=== PATIENT | female | born 1955 | race African-American/Black ===

== ENCOUNTER 2017-09-10 08:34 | Inpatient (IN) ==
[2017-09-10] MEDS ORDERED: ALBUTEROL/IPRATROPIUM 3 ML NEB RESP TX STA (09:04)
[2017-09-10 09:33] LABS: Basophils # 0.1 10*3/uL (0.0-0.2); Basophils % 0.6 % (0.0-0.8); Eosinophils # 0.2 10*3/uL (0.0-0.87); Eosinophils % 2.3 % (0.00-10.9); Hematocrit 40.8 VOL% (35.7-47.0); Hemoglobin 14.1 GM/DL (12.0-16.0); Immature Granulocytes % 0.2 %; Immature Granulocytes Absolute 0.02 #; Lymphocytes # 0.7 10*3/uL (1.4-4.0); Lymphocytes % 8.6 % (21.3-54.2); Mean Corpuscular HGB Conc 34.6 GM/DL (32-36); Mean Corpuscular Hemoglobin 31 PG (27-34); Mean Corpuscular Volume 90.9 FL (87-102); Mean Platelet Volume 8.5 FL (9.6-12.0); Monocytes # 0.6 10*3/uL (0.11-0.8); Monocytes % 7.2 % (1.7-12.7); Neutrophils # 6.9 10*3/uL (1.4-7.4); Neutrophils % 81.1 % (38.7-73.9); Platelet Count 272 T/CUMM (130-400); Red Blood Count 4.49 MC/CUMM (3.8-5.5); Red Cell Distribution Width 12.8 % (9.3-17.3); White Blood Count 8.6 T/CUMM (4-12)
[2017-09-10 10:18] LABS: Albumin 3.5 G/DL (3.4-5.0); Bilirubin,Total 0.5 MG/DL (0.2-1.0); Calcium 9.4 MG/DL (8.5-10.1); Osmolality,Calculated 271.8 MOS/KG (273-304); Potassium 3.8 MMOL/L (3.5-5.1); Total Protein 7.6 G/DL (6.4-8.3)
[2017-09-10] MEDS ORDERED: LEVOFLOXACIN INJ 500 MG in PREMIX 1 EACH IV STA (10:21)
[2017-09-10] MEDS ORDERED: DOCUSATE SODIUM 100 MG CAPSULE PO PRN (10:47)
[2017-09-10] MEDS ORDERED: ACETAMINOPHEN 325 MG TABLET PO PRN (10:47)
[2017-09-10] MEDS ORDERED: ONDANSETRON 4 MG/2 ML VIAL IV PRN (10:47)
[2017-09-10] MEDS ORDERED: PROMETHAZINE 25 MG/1 ML VIAL IM PRN (10:47)
[2017-09-10] MEDS ORDERED: guaiFENesin/DM ER 600-30 MG TABLET PO PRN (10:47)
[2017-09-10] MEDS ORDERED: diphenhydrAMINE CAP 25 MG CAPSULE PO PRN (10:47)
[2017-09-10] MEDS ORDERED: [UNRECOGNIZED DRUG - OTHER] PO PRN (10:52)
[2017-09-10] MEDS: ENOXAPARIN 40 MG/0.4 ML SYRINGE SUBCUT SCH (13:35)
[2017-09-10] MEDS: SODIUM CHLORIDE 0.9% 1,000 ML IV SCH (13:35)
[2017-09-10] MEDS: ALBUTEROL/IPRATROPIUM 3 ML NEB RESP TX SCH ×2 (13:38→19:11)
[2017-09-10] MEDS ORDERED: NICOTINE 21 MG/24 HR PATCH TRANSDERM PRN (13:43)
[2017-09-10] MEDS: methylPREDNISolone SOD SUC 125 MG/2 ML VIAL IV SCH (14:41)
[2017-09-10 16:53] LABS: PT Patient Result 10.7 SECS
[2017-09-11] MEDS: SODIUM CHLORIDE 0.9% 1,000 ML IV SCH ×3 (00:28→15:31)
[2017-09-11] MEDS: ALBUTEROL/IPRATROPIUM 3 ML NEB RESP TX SCH ×4 (00:56→20:41)
[2017-09-11] MEDS: methylPREDNISolone SOD SUC 125 MG/2 ML VIAL IV SCH ×2 (03:36→18:22)
[2017-09-11 05:17] LABS: Basophils % 0.1 % (0.0-0.8); Eosinophils % 0.1 % (0.00-10.9); Hematocrit 34.5 VOL% (35.7-47.0); Hemoglobin 12.3 GM/DL (12.0-16.0); Immature Granulocytes % 0.4 %; Immature Granulocytes Absolute 0.04 #; Lymphocytes # 0.8 10*3/uL (1.4-4.0); Lymphocytes % 8.2 % (21.3-54.2); Mean Corpuscular HGB Conc 35.7 GM/DL (32-36); Mean Corpuscular Hemoglobin 32 PG (27-34); Mean Corpuscular Volume 89.8 FL (87-102); Mean Platelet Volume 8.9 FL (9.6-12.0); Monocytes # 0.7 10*3/uL (0.11-0.8); Monocytes % 7.5 % (1.7-12.7); Neutrophils # 8.3 10*3/uL (1.4-7.4); Neutrophils % 83.7 % (38.7-73.9); Platelet Count 276 T/CUMM (130-400); Red Blood Count 3.84 MC/CUMM (3.8-5.5); Red Cell Distribution Width 12.8 % (9.3-17.3); White Blood Count 9.9 T/CUMM (4-12)
[2017-09-11 05:49] LABS: Albumin 2.7 G/DL (3.4-5.0); Bilirubin,Total 1.4 MG/DL (0.2-1.0); Calcium 8.3 MG/DL (8.5-10.1); Osmolality,Calculated 281.3 MOS/KG (273-304); Potassium 3.9 MMOL/L (3.5-5.1); Total Protein 6.2 G/DL (6.4-8.3)
[2017-09-11] MEDS: ASCORBIC ACID 500 MG TABLET PO SCH (10:09)
[2017-09-11] MEDS: TAMOXIFEN 10 MG TABLET PO SCH (10:09)
[2017-09-11] MEDS: CYANOCOBALAMIN 500 MCG TABLET PO SCH (10:09)
[2017-09-11] MEDS: PANTOPRAZOLE 40 MG TABLET PO SCH (10:09)
[2017-09-11] MEDS: CETIRIZINE 10 MG TABLET PO SCH (10:10)
[2017-09-11] MEDS: CHOLECALCIFEROL 400 UNIT TABLET PO SCH (10:10)
[2017-09-11] MEDS: amLODIPine 5 MG TABLET PO SCH (10:10)
[2017-09-11] MEDS: ENOXAPARIN 40 MG/0.4 ML SYRINGE SUBCUT SCH (10:15)
[2017-09-11] MEDS: LOSARTAN 50 MG TABLET PO SCH (10:15)
[2017-09-11] MEDS: LEVOFLOXACIN INJ 500 MG in PREMIX 1 EACH IV SCH (10:15)
[2017-09-11 14:32] LABS: Total Protein,Pleural Fluid 3.8 G/DL
[2017-09-11 19:54] LABS: Lymphocytes,Pleural Fluid 60 %; Monocytes,Pleural Fluid 19 %; Neutrophils,Pleural Fluid 21 %
[2017-09-11 19:56] LABS: RBC,Pleural Fluid 32212 T/CUMM
[2017-09-12] MEDS: ALBUTEROL/IPRATROPIUM 3 ML NEB RESP TX SCH ×4 (00:48→20:07)
[2017-09-12] MEDS: ENOXAPARIN 40 MG/0.4 ML SYRINGE SUBCUT SCH (09:51)
[2017-09-12] MEDS: ASCORBIC ACID 500 MG TABLET PO SCH (09:52)
[2017-09-12] MEDS: LOSARTAN 50 MG TABLET PO SCH (09:52)
[2017-09-12] MEDS: CETIRIZINE 10 MG TABLET PO SCH (09:52)
[2017-09-12] MEDS: TAMOXIFEN 10 MG TABLET PO SCH (09:52)
[2017-09-12] MEDS: LEVOFLOXACIN INJ 500 MG in PREMIX 1 EACH IV SCH (09:52)
[2017-09-12] MEDS: CYANOCOBALAMIN 500 MCG TABLET PO SCH (09:52)
[2017-09-12] MEDS: amLODIPine 5 MG TABLET PO SCH (09:52)
[2017-09-12] MEDS: PANTOPRAZOLE 40 MG TABLET PO SCH (09:52)
[2017-09-12] MEDS: CHOLECALCIFEROL 400 UNIT TABLET PO SCH (09:52)
[2017-09-12] MEDS: methylPREDNISolone SOD SUC 125 MG/2 ML VIAL IV SCH ×2 (09:53→20:37)
[2017-09-13] MEDS: ALBUTEROL/IPRATROPIUM 3 ML NEB RESP TX SCH ×4 (00:31→19:04)
[2017-09-13] MEDS: LOSARTAN 50 MG TABLET PO SCH (08:48)
[2017-09-13] MEDS: PANTOPRAZOLE 40 MG TABLET PO SCH (08:49)
[2017-09-13] MEDS: ASCORBIC ACID 500 MG TABLET PO SCH (08:49)
[2017-09-13] MEDS: CHOLECALCIFEROL 400 UNIT TABLET PO SCH (08:49)
[2017-09-13] MEDS: CETIRIZINE 10 MG TABLET PO SCH (08:49)
[2017-09-13] MEDS: CYANOCOBALAMIN 500 MCG TABLET PO SCH (08:49)
[2017-09-13] MEDS: TAMOXIFEN 10 MG TABLET PO SCH (08:49)
[2017-09-13] MEDS: ENOXAPARIN 40 MG/0.4 ML SYRINGE SUBCUT SCH (08:50)
[2017-09-13] MEDS: amLODIPine 5 MG TABLET PO SCH (08:50)
[2017-09-13] MEDS: methylPREDNISolone SOD SUC 125 MG/2 ML VIAL IV SCH ×2 (08:50→21:15)
[2017-09-13] MEDS: LEVOFLOXACIN INJ 500 MG in PREMIX 1 EACH IV SCH (08:52)
[2017-09-14] MEDS: ALBUTEROL/IPRATROPIUM 3 ML NEB RESP TX SCH ×4 (00:52→19:33)
[2017-09-14] MEDS: CYANOCOBALAMIN 500 MCG TABLET PO SCH (09:00)
[2017-09-14] MEDS: LOSARTAN 50 MG TABLET PO SCH (09:00)
[2017-09-14] MEDS: CHOLECALCIFEROL 400 UNIT TABLET PO SCH (09:01)
[2017-09-14] MEDS: CETIRIZINE 10 MG TABLET PO SCH (09:01)
[2017-09-14] MEDS: TAMOXIFEN 10 MG TABLET PO SCH (09:01)
[2017-09-14] MEDS: amLODIPine 5 MG TABLET PO SCH (09:01)
[2017-09-14] MEDS: PANTOPRAZOLE 40 MG TABLET PO SCH (09:01)
[2017-09-14] MEDS: methylPREDNISolone SOD SUC 125 MG/2 ML VIAL IV SCH ×2 (09:01→22:40)
[2017-09-14] MEDS: ASCORBIC ACID 500 MG TABLET PO SCH (09:01)
[2017-09-14] MEDS: ENOXAPARIN 40 MG/0.4 ML SYRINGE SUBCUT SCH (09:03)
[2017-09-14] MEDS: LEVOFLOXACIN INJ 500 MG in PREMIX 1 EACH IV SCH (09:06)
[2017-09-15] MEDS: ALBUTEROL/IPRATROPIUM 3 ML NEB RESP TX SCH ×2 (01:54→07:19)
[2017-09-15 08:26] VITALS: BP 131/72
[2017-09-15] MEDS: LOSARTAN 50 MG TABLET PO SCH (10:18)
[2017-09-15] MEDS: CYANOCOBALAMIN 500 MCG TABLET PO SCH (10:19)
[2017-09-15] MEDS: TAMOXIFEN 10 MG TABLET PO SCH (10:19)
[2017-09-15] MEDS: CETIRIZINE 10 MG TABLET PO SCH (10:19)
[2017-09-15] MEDS: CHOLECALCIFEROL 400 UNIT TABLET PO SCH (10:19)
[2017-09-15] MEDS: ASCORBIC ACID 500 MG TABLET PO SCH (10:19)
[2017-09-15] MEDS: amLODIPine 5 MG TABLET PO SCH (10:19)
[2017-09-15] MEDS: PANTOPRAZOLE 40 MG TABLET PO SCH (10:19)
[2017-09-15] MEDS: ENOXAPARIN 40 MG/0.4 ML SYRINGE SUBCUT SCH (10:20)
[2017-09-15] MEDS: methylPREDNISolone SOD SUC 125 MG/2 ML VIAL IV SCH (10:20)
[2017-09-15] MEDS: LEVOFLOXACIN INJ 500 MG in PREMIX 1 EACH IV SCH (10:20)
== END 2017-09-15 12:03 | disposition home or self-care (01) | DRG 188 ==
LOC: N.ED 08:34 → N.EDINP 10:47 → N.2E 14:44
PROVIDERS: ADMIT Internal Medicine Geriatric Medicine; ATTEND Internal Medicine Geriatric Medicine
PROC: IRTHORA (2017-09-11 10:40)

== ENCOUNTER 2018-05-19 11:18 | Inpatient (IN) ==
[2018-05-19] MEDS ORDERED: ALUM/MAG/SIMETH/LIDO VISC 1:1 30 ML BOTTLE PO STA (13:53)
[2018-05-19] MEDS ORDERED: ONDANSETRON 4 MG/2 ML VIAL IV STA (13:53)
[2018-05-19] MEDS ORDERED: SODIUM CHLORIDE 0.9% 500 ML IV STA (13:53)
[2018-05-19] MEDS ORDERED: PANTOPRAZOLE 40 MG VIAL IV STA (13:53)
[2018-05-19 15:34] LABS: Eosinophils % 0.2 % (0.00-10.9); Hematocrit 24.9 VOL% (35.7-47.0); Hemoglobin 8.8 GM/DL (12.0-16.0); Lymphocytes % 3.2 % (21.3-54.2); Mean Corpuscular HGB Conc 35.3 GM/DL (32-36); Mean Corpuscular Hemoglobin 32 PG (27-34); Mean Corpuscular Volume 91.5 FL (87-102); Mean Platelet Volume 9.5 FL (9.6-12.0); Monocytes % 6.3 % (1.7-12.7); Neutrophils % 87.5 % (38.7-73.9); Platelet Count 110 T/CUMM (130-400); Red Blood Count 2.72 MC/CUMM (3.8-5.5); Red Cell Distribution Width 13.1 % (9.3-17.3); White Blood Count 18.6 T/CUMM (4-12)
[2018-05-19 15:35] LABS: Basophils # 0.1 10*3/uL (0.0-0.2); Basophils % 0.4 % (0.0-0.8); Immature Granulocytes % 2.4 %; Immature Granulocytes Absolute 0.44 #; Lymphocytes # 0.6 10*3/uL (1.4-4.0); Monocytes # 1.2 10*3/uL (0.11-0.8); Neutrophils # 16.3 10*3/uL (1.4-7.4)
[2018-05-19 15:43] LABS: Apearance,Urine CLEAR (Clear); Bilirubin,Urine Negative (Negative); Blood, Urine Negative (Negative); Glucose,Urine (UA) Negative (Negative); Ketones,Urine 20 mg/dL (Negative); Nitrite,Urine Negative (Negative); Protein,Urine Negative; Urine Color Yellow (Yellow); Urine Specific Gravity 1.035 (1.001-1.035); Urine Urobilinogen < 2.0 EU/DL (0.2-1.0)
[2018-05-19 15:59] LABS: Alanine Aminotransferase 15 U/L (13-56); Albumin 3.1 G/DL (3.4-5.0); Alkaline Phosphatase 107 U/L (45-117); Amylase 45 U/L (25-115); Aspartate Amino Transferase 21 U/L (0-37); Bilirubin,Total < 0.39 MG/DL (0.2-1.0); Blood Urea Nitrogen 3 MG/DL (7-18); Calcium 8.2 MG/DL (8.5-10.1); Glucose 70 MG/DL (74-106); Osmolality,Calculated 236.2 MOS/KG (273-304); Potassium 3.6 MMOL/L (3.5-5.1); Total Protein 6.4 G/DL (6.4-8.3)
[2018-05-19 16:11] LABS: Sodium 120 MMOL/L (136-145)
[2018-05-19] MEDS ORDERED: DEXTROSE 50% 25 GM/50 ML VIAL IV STA (16:12)
[2018-05-19] MEDS ORDERED: MAGNESIUM SULF RIDER 2 GM in PREMIX 1 EACH IV STA (16:12)
[2018-05-19] MEDS ORDERED: DEXTROSE 50% 25 GM/50 ML SYRINGE IV ONE (16:16)
[2018-05-19] MEDS ORDERED: ONDANSETRON 4 MG/2 ML VIAL IV PRN (16:36)
[2018-05-19] MEDS ORDERED: ZALEPLON 5 MG CAPSULE PO PRN (16:36)
[2018-05-19] MEDS ORDERED: MORPHINE 4 MG/1 ML VIAL IV PRN (16:36)
[2018-05-19] MEDS ORDERED: MAGNESIUM SULF RIDER 4 GM in PREMIX 1 EACH IV PRN (16:39)
[2018-05-19] MEDS ORDERED: MAGNESIUM SULF RIDER 2 GM in PREMIX 1 EACH IV PRN (16:39)
[2018-05-19 17:30] LABS: Eosinophils 1 % (0-10); Hypochromasia Slight; Lymphocytes 3 % (20-55); Segmented Neutrophils 94 % (50-85); Total Cells Counted 100
[2018-05-19 17:31] LABS: Anisocytosis Slight
[2018-05-19 17:40] LABS: Microcytosis Slight
[2018-05-19 17:41] LABS: Platelet Estimate Decreased
[2018-05-19 17:42] LABS: Schistocytes Slight
[2018-05-19 17:43] LABS: Acanthocytes Few
[2018-05-19] MEDS: HEPARIN 5,000 UNIT/1 ML VIAL SUBCUT SCH (18:35)
[2018-05-19] MEDS: DEXTROSE 5% NACL 0.9% 1,000 ML IV SCH (20:12)
[2018-05-19] MEDS: cefTRIAXone 1,000 MG in SYRINGE 1 EACH IV SCH (20:12)
[2018-05-19] MEDS: ALBUTEROL/IPRATROPIUM 3 ML NEB RESP TX SCH (20:13)
[2018-05-20] MEDS: HEPARIN 5,000 UNIT/1 ML VIAL SUBCUT SCH ×3 (01:17→16:25)
[2018-05-20] MEDS: ALBUTEROL/IPRATROPIUM 3 ML NEB RESP TX SCH ×4 (01:31→19:54)
[2018-05-20] MEDS: DEXTROSE 5% NACL 0.9% 1,000 ML IV SCH ×2 (03:35→17:17)
[2018-05-20 05:34] LABS: Alanine Aminotransferase 11 U/L (13-56); Albumin 2.4 G/DL (3.4-5.0); Alkaline Phosphatase 77 U/L (45-117); Aspartate Amino Transferase 14 U/L (0-37); Bilirubin,Total < 0.39 MG/DL (0.2-1.0); Blood Urea Nitrogen 3 MG/DL (7-18); Calcium 7.8 MG/DL (8.5-10.1); Glucose 106 MG/DL (74-106); Osmolality,Calculated 245.6 MOS/KG (273-304); Potassium 3.2 MMOL/L (3.5-5.1); Sodium 124 MMOL/L (136-145); Total Protein 5.3 G/DL (6.4-8.3)
[2018-05-20 05:47] LABS: Basophils % 0.2 % (0.0-0.8); Eosinophils # 0.1 10*3/uL (0.0-0.87); Eosinophils % 0.5 % (0.00-10.9); Hematocrit 21.2 VOL% (35.7-47.0); Hemoglobin 7.6 GM/DL (12.0-16.0); Immature Granulocytes % 2.2 %; Immature Granulocytes Absolute 0.24 #; Lymphocytes # 0.7 10*3/uL (1.4-4.0); Lymphocytes % 6.1 % (21.3-54.2); Mean Corpuscular HGB Conc 35.8 GM/DL (32-36); Mean Corpuscular Hemoglobin 33 PG (27-34); Mean Corpuscular Volume 91.8 FL (87-102); Mean Platelet Volume 9.6 FL (9.6-12.0); Monocytes % 8.7 % (1.7-12.7); NRBC # 0.02 10*3/uL; Neutrophils % 82.3 % (38.7-73.9); Platelet Count 106 T/CUMM (130-400); Red Blood Count 2.31 MC/CUMM (3.8-5.5); Red Cell Distribution Width 13.2 % (9.3-17.3); White Blood Count 10.9 T/CUMM (4-12)
[2018-05-20 06:18] LABS: Hypochromasia Slight; Lymphocytes 10 % (20-55); Metamyelocytes 1 %; Platelet Estimate Decreased; Segmented Neutrophils 87 % (50-85); Total Cells Counted 100
[2018-05-20] MEDS: POTASSIUM CHLORIDE RIDER 10 MEQ in PREMIX 1 EACH IV PRN ×2 (06:40→17:16)
[2018-05-20] MEDS ORDERED: SODIUM CHLORIDE 0.9% 1,000 ML IV PRN ×3 (06:51→09:33)
[2018-05-20] MEDS ORDERED: ACETAMINOPHEN 325 MG TABLET PO SCH ×2 (07:00→10:00)
[2018-05-20] MEDS ORDERED: diphenhydrAMINE 50 MG/1 ML VIAL IV SCH ×2 (07:00→10:00)
[2018-05-20] MEDS: VITAMIN E 400 UNIT CAPSULE PO SCH (09:11)
[2018-05-20] MEDS: ASPIRIN EC 81 MG TABLET PO SCH (09:11)
[2018-05-20] MEDS: LOSARTAN 50 MG TABLET PO SCH (09:11)
[2018-05-20] MEDS: amLODIPine 5 MG TABLET PO SCH (09:12)
[2018-05-20] MEDS: PANTOPRAZOLE 40 MG TABLET PO SCH (09:12)
[2018-05-20] MEDS: NON-FORMULARY MEDICATION (Cyanocobalamin (Vitamin B-12) [Vitamin B-12] 5,000 MCG) PO SCH (09:12)
[2018-05-20] MEDS: FLUTICASONE 50 MCG NASAL SPRAY 16 GM BOTTLE BOTH NARES SCH (09:12)
[2018-05-20] MEDS: LINACLOTIDE 145 MCG CAPSULE PO SCH (09:18)
[2018-05-20] MEDS: LACTOBACILLUS RHAMNOSUS GG CAPSULE PO SCH ×2 (13:40→20:05)
[2018-05-20 19:32] LABS: Hematocrit 26.8 VOL% (35.7-47.0); Hemoglobin 9.4 GM/DL (12.0-16.0)
[2018-05-20] MEDS: cefTRIAXone 1,000 MG in SYRINGE 1 EACH IV SCH (20:06)
[2018-05-21] MEDS: ALBUTEROL/IPRATROPIUM 3 ML NEB RESP TX SCH ×2 (00:21→07:10)
[2018-05-21] MEDS: HEPARIN 5,000 UNIT/1 ML VIAL SUBCUT SCH ×2 (00:44→09:43)
[2018-05-21 05:09] LABS: Basophils % 0.3 % (0.0-0.8); Eosinophils # 0.1 10*3/uL (0.0-0.87); Eosinophils % 0.4 % (0.00-10.9); Hematocrit 29.5 VOL% (35.7-47.0); Hemoglobin 9.9 GM/DL (12.0-16.0); Immature Granulocytes % 2.3 %; Immature Granulocytes Absolute 0.32 #; Lymphocytes # 0.7 10*3/uL (1.4-4.0); Lymphocytes % 5.1 % (21.3-54.2); Mean Corpuscular HGB Conc 33.6 GM/DL (32-36); Mean Corpuscular Hemoglobin 30 PG (27-34); Mean Corpuscular Volume 88.3 FL (87-102); Mean Platelet Volume 9.1 FL (9.6-12.0); Monocytes % 7.3 % (1.7-12.7); Neutrophils # 11.5 10*3/uL (1.4-7.4); Neutrophils % 84.6 % (38.7-73.9); Platelet Count 130 T/CUMM (130-400); Red Blood Count 3.34 MC/CUMM (3.8-5.5); Red Cell Distribution Width 17.2 % (9.3-17.3); White Blood Count 13.6 T/CUMM (4-12)
[2018-05-21 05:19] LABS: Albumin 2.3 G/DL (3.4-5.0); Bilirubin,Total 0.6 MG/DL (0.2-1.0); Calcium 8.4 MG/DL (8.5-10.1); Osmolality,Calculated 251.1 MOS/KG (273-304); Potassium 3.6 MMOL/L (3.5-5.1); Total Protein 5.6 G/DL (6.4-8.3)
[2018-05-21 05:31] LABS: Hypochromasia Slight; Microcytosis 1+
[2018-05-21 05:32] LABS: Acanthocytes Few; Ovalocytes Slight; Target Cells Slight
[2018-05-21 05:33] LABS: Platelet Estimate Adequate
[2018-05-21] MEDS ORDERED: AZITHROMYCIN 250 MG TABLET PO SCH (09:00)
[2018-05-21] MEDS ORDERED: fentaNYL 12 MCG/HR PATCH TRANSDERM SCH (09:30)
[2018-05-21] MEDS: LOSARTAN 50 MG TABLET PO SCH (09:36)
[2018-05-21] MEDS: VITAMIN E 400 UNIT CAPSULE PO SCH (09:36)
[2018-05-21] MEDS: LACTOBACILLUS RHAMNOSUS GG CAPSULE PO SCH (09:36)
[2018-05-21] MEDS: amLODIPine 5 MG TABLET PO SCH (09:36)
[2018-05-21] MEDS: LINACLOTIDE 145 MCG CAPSULE PO SCH (09:36)
[2018-05-21] MEDS: ASPIRIN EC 81 MG TABLET PO SCH (09:37)
[2018-05-21] MEDS: FLUTICASONE 50 MCG NASAL SPRAY 16 GM BOTTLE BOTH NARES SCH (09:40)
[2018-05-21] MEDS: NON-FORMULARY MEDICATION (Cyanocobalamin (Vitamin B-12) [Vitamin B-12] 5,000 MCG) PO SCH (09:40)
[2018-05-21] MEDS: PANTOPRAZOLE 40 MG TABLET PO SCH (09:43)
[2018-05-21] MEDS: DEXTROSE 5% NACL 0.9% 1,000 ML IV SCH (09:48)
[2018-05-21 12:25] VITALS: BP 121/73
[2018-05-21 13:26] LABS: Osmolality, Serum 248 mOsm/kg (275 - 295)
[2018-05-21 14:16] LABS: Osmolality, Urine 353 mOsm/kg (150 - 1150)
== END 2018-05-21 12:47 | disposition home or self-care (01) | DRG 181 ==
LOC: N.ED 11:18 → N.EDINP 16:36 → N.4E 18:29
PROVIDERS: ADMIT Internal Medicine Geriatric Medicine; ATTEND Internal Medicine Geriatric Medicine

== ENCOUNTER 2018-06-18 17:55 | Inpatient (IN) ==
[2018-06-18] MEDS ORDERED: methylPREDNISolone SOD SUC 125 MG/2 ML VIAL IV STA (18:39)
[2018-06-18 18:54] LABS: Basophils # 0.1 10*3/uL (0.0-0.2); Basophils % 0.4 % (0.0-0.8); Eosinophils # 0.1 10*3/uL (0.0-0.87); Eosinophils % 0.5 % (0.00-10.9); Hematocrit 34.3 VOL% (35.7-47.0); Hemoglobin 11.5 GM/DL (12.0-16.0); Immature Granulocytes Absolute 0.16 #; Lymphocytes # 0.5 10*3/uL (1.4-4.0); Lymphocytes % 2.9 % (21.3-54.2); Mean Corpuscular HGB Conc 33.5 GM/DL (32-36); Mean Corpuscular Hemoglobin 31 PG (27-34); Mean Corpuscular Volume 92.2 FL (87-102); Mean Platelet Volume 7.7 FL (9.6-12.0); Monocytes % 6.3 % (1.7-12.7); Neutrophils # 14.8 10*3/uL (1.4-7.4); Neutrophils % 88.9 % (38.7-73.9); Platelet Count 429 T/CUMM (130-400); Red Blood Count 3.72 MC/CUMM (3.8-5.5); Red Cell Distribution Width 19.5 % (9.3-17.3); White Blood Count 16.6 T/CUMM (4-12)
[2018-06-18] MEDS ORDERED: ALBUTEROL 2.5 MG/3 ML NEB RESP TX SCH (19:00)
[2018-06-18 19:17] LABS: Albumin 3.7 G/DL (3.4-5.0); Bilirubin,Total 0.4 MG/DL (0.2-1.0); Calcium 9.3 MG/DL (8.5-10.1); Osmolality,Calculated 253.1 MOS/KG (273-304); Total Protein 7.6 G/DL (6.4-8.3)
[2018-06-18] MEDS ORDERED: CEFTAROLINE 600 MG in SODIUM CHLORIDE 0.9% 100 ML IV STA (19:23)
[2018-06-18 19:29] LABS: Amorphous Crystals,Urine Occasional /HPF (Few); Apearance,Urine Slightly Hazy (Clear); Bilirubin,Urine Negative (Negative); Blood, Urine Negative (Negative); Glucose,Urine (UA) Negative (Negative); Hyaline Casts,Urine 1 /LPF (0-3); Ketones,Urine Negative (Negative); Nitrite,Urine Negative (Negative); Protein,Urine Negative; Squamous Epithelial Cell,Urine Occasional /HPF (0-10); Urine Color Yellow (Yellow); Urine Specific Gravity 1.004 (1.001-1.035); Urine Urobilinogen < 2.0 EU/DL (0.2-1.0); WBC,Urine 2 /HPF (0-6)
[2018-06-18 19:43] LABS: PT Patient Result 11.1 SECS
[2018-06-18] MEDS ORDERED: ONDANSETRON 4 MG/2 ML VIAL IV PRN (20:29)
[2018-06-18 21:39] LABS: Lymphocytes 3 % (20-55); Segmented Neutrophils 95 % (50-85); Total Cells Counted 100
[2018-06-18 21:40] LABS: Anisocytosis 1+; Burr Cells Slight; Microcytosis Slight; Ovalocytes Slight; Schistocytes Slight
[2018-06-18 21:42] LABS: Platelet Estimate Normal; Spherocytes Slight
[2018-06-18] MEDS: LEVOFLOXACIN INJ 750 MG in PREMIX 1 EACH IV SCH (21:53)
[2018-06-18] MEDS: SODIUM CHLORIDE 0.9% 1,000 ML IV SCH (21:53)
[2018-06-18] MEDS: LACTOBACILLUS RHAMNOSUS GG CAPSULE PO SCH (21:57)
[2018-06-18] MEDS: BENZONATATE 100 MG CAPSULE PO SCH (21:57)
[2018-06-18] MEDS ORDERED: fentaNYL 12 MCG/HR PATCH TRANSDERM SCH (22:00)
[2018-06-19] MEDS: ALBUTEROL/IPRATROPIUM 3 ML NEB RESP TX SCH ×2 (03:15→07:18)
[2018-06-19 04:50] LABS: Basophils % 0.1 % (0.0-0.8); Hematocrit 30.3 VOL% (35.7-47.0); Hemoglobin 10.4 GM/DL (12.0-16.0); Immature Granulocytes % 1.1 %; Immature Granulocytes Absolute 0.24 #; Lymphocytes # 0.2 10*3/uL (1.4-4.0); Lymphocytes % 0.7 % (21.3-54.2); Mean Corpuscular HGB Conc 34.3 GM/DL (32-36); Mean Corpuscular Hemoglobin 31 PG (27-34); Mean Corpuscular Volume 90.4 FL (87-102); Mean Platelet Volume 7.8 FL (9.6-12.0); Monocytes # 0.1 10*3/uL (0.11-0.8); Monocytes % 0.5 % (1.7-12.7); Neutrophils # 21.6 10*3/uL (1.4-7.4); Neutrophils % 97.6 % (38.7-73.9); Platelet Count 464 T/CUMM (130-400); Red Blood Count 3.35 MC/CUMM (3.8-5.5); Red Cell Distribution Width 19.5 % (9.3-17.3); White Blood Count 22.1 T/CUMM (4-12)
[2018-06-19 05:12] LABS: Band Neutrophils 1 % (0-10); Calcium 9.2 MG/DL (8.5-10.1); Hypochromasia 1+; Lymphocytes 1 % (20-55); Microcytosis Slight; Osmolality,Calculated 256.9 MOS/KG (273-304); Ovalocytes Slight; Platelet Estimate Adequate; Potassium 3.8 MMOL/L (3.5-5.1); Segmented Neutrophils 98 % (50-85); Total Cells Counted 100
[2018-06-19] MEDS ORDERED: LACTULOSE 20 GM/30 ML UDCUP PO PRN ×2 (08:21→08:26)
[2018-06-19] MEDS ORDERED: TEMAZEPAM 7.5 MG CAPSULE PO PRN (08:26)
[2018-06-19] MEDS ORDERED: chlorproMAZINE INJ 50 MG in SODIUM CHLORIDE 0.9% 100 ML IV PRN (08:26)
[2018-06-19] MEDS ORDERED: ONDANSETRON 4 MG/2 ML VIAL IV PRN (08:26)
[2018-06-19] MEDS ORDERED: MYLANTA/LIDO VISC 2:1 300 ML BOTTLE SWISH/SPIT PRN (08:26)
[2018-06-19] MEDS ORDERED: ALPRAZolam 0.25 MG TABLET PO PRN (08:26)
[2018-06-19] MEDS ORDERED: ALUMINUM/MAGNES/SIMETH MAX STR 30 ML UDCUP PO PRN (08:26)
[2018-06-19] MEDS ORDERED: chlorproMAZINE 25 MG TABLET PO PRN (08:26)
[2018-06-19] MEDS ORDERED: BENZTROPINE 2 MG/2 ML AMP IV PRN (08:26)
[2018-06-19] MEDS ORDERED: LOPERAMIDE 2 MG CAPSULE PO PRN ×2 (08:26)
[2018-06-19] MEDS ORDERED: traMADol 50 MG TABLET PO PRN (08:26)
[2018-06-19] MEDS ORDERED: MYLANTA/LIDO VISC 2:1 300 ML BOTTLE SWISH/SWAL PRN (08:26)
[2018-06-19] MEDS ORDERED: diphenhydrAMINE CAP 25 MG CAPSULE PO PRN (08:26)
[2018-06-19] MEDS ORDERED: chlorproMAZINE INJ 25 MG in SODIUM CHLORIDE 0.9% 100 ML IV PRN (08:26)
[2018-06-19] MEDS ORDERED: guaiFENesin 200 MG/10 ML UDCUP PO PRN (08:26)
[2018-06-19] MEDS ORDERED: PROMETHAZINE INJ 25 MG in SODIUM CHLORIDE 0.9% 50 ML IV PRN (08:26)
[2018-06-19] MEDS ORDERED: MAGNESIUM HYDROXIDE SUSP 30 ML UDCUP PO PRN (08:26)
[2018-06-19] MEDS ORDERED: ACETAMINOPHEN 325 MG TABLET PO PRN (08:26)
[2018-06-19] MEDS ORDERED: PANTOPRAZOLE 40 MG VIAL IV SCH (09:00)
[2018-06-19] MEDS: LINACLOTIDE 145 MCG CAPSULE PO SCH (10:32)
[2018-06-19] MEDS: LACTOBACILLUS RHAMNOSUS GG CAPSULE PO SCH ×2 (10:32→21:28)
[2018-06-19] MEDS: LOSARTAN 50 MG TABLET PO SCH (10:32)
[2018-06-19] MEDS: BENZONATATE 100 MG CAPSULE PO SCH ×3 (10:33→21:28)
[2018-06-19] MEDS: CYANOCOBALAMIN 500 MCG TABLET PO SCH (10:39)
[2018-06-19] MEDS: SODIUM CHLORIDE 0.9% 1,000 ML IV SCH ×2 (10:43→19:12)
[2018-06-19] MEDS: FLUTICASONE 50 MCG NASAL SPRAY 16 GM BOTTLE BOTH NARES SCH (10:43)
[2018-06-19] MEDS: LEVOFLOXACIN INJ 750 MG in PREMIX 1 EACH IV SCH (21:29)
[2018-06-20 04:54] LABS: Basophils % 0.3 % (0.0-0.8); Eosinophils # 0.1 10*3/uL (0.0-0.87); Eosinophils % 0.5 % (0.00-10.9); Hematocrit 26.7 VOL% (35.7-47.0); Hemoglobin 8.8 GM/DL (12.0-16.0); Immature Granulocytes % 0.5 %; Immature Granulocytes Absolute 0.06 #; Lymphocytes # 0.5 10*3/uL (1.4-4.0); Lymphocytes % 4.3 % (21.3-54.2); Mean Corpuscular Hemoglobin 30 PG (27-34); Mean Corpuscular Volume 92.4 FL (87-102); Mean Platelet Volume 7.8 FL (9.6-12.0); Monocytes % 8.6 % (1.7-12.7); Neutrophils # 9.5 10*3/uL (1.4-7.4); Neutrophils % 85.8 % (38.7-73.9); Platelet Count 484 T/CUMM (130-400); Red Blood Count 2.89 MC/CUMM (3.8-5.5); Red Cell Distribution Width 19.8 % (9.3-17.3); White Blood Count 11.1 T/CUMM (4-12)
[2018-06-20 05:09] LABS: Bilirubin,Total 0.7 MG/DL (0.2-1.0); Calcium 8.5 MG/DL (8.5-10.1); Osmolality,Calculated 260.5 MOS/KG (273-304); Potassium 3.6 MMOL/L (3.5-5.1); Total Protein 6.1 G/DL (6.4-8.3)
[2018-06-20] MEDS: SODIUM CHLORIDE 0.9% 1,000 ML IV SCH ×2 (05:18→16:30)
[2018-06-20 05:19] LABS: Lymphocytes 6 % (20-55); Myelocytes 1 %; Platelet Estimate Normal; Polychromasia Slight; Segmented Neutrophils 89 % (50-85); Total Cells Counted 100
[2018-06-20] MEDS: FLUTICASONE 50 MCG NASAL SPRAY 16 GM BOTTLE BOTH NARES SCH (11:25)
[2018-06-20] MEDS: LOSARTAN 50 MG TABLET PO SCH (11:25)
[2018-06-20] MEDS: PANTOPRAZOLE 40 MG TABLET PO SCH (11:25)
[2018-06-20] MEDS: LACTOBACILLUS RHAMNOSUS GG CAPSULE PO SCH ×2 (11:25→20:21)
[2018-06-20] MEDS: LINACLOTIDE 145 MCG CAPSULE PO SCH (11:26)
[2018-06-20] MEDS: CYANOCOBALAMIN 500 MCG TABLET PO SCH (11:27)
[2018-06-20] MEDS: fentaNYL 50 MCG/HR PATCH TRANSDERM SCH (11:27)
[2018-06-20] MEDS: FLUCONAZOLE 40 MG/ML 35 ML/BOTTLE PO SCH (11:28)
[2018-06-20] MEDS: BENZONATATE 100 MG CAPSULE PO SCH (16:32)
[2018-06-20] MEDS: LEVOFLOXACIN INJ 750 MG in PREMIX 1 EACH IV SCH (21:50)
[2018-06-21] MEDS: LACTOBACILLUS RHAMNOSUS GG CAPSULE PO SCH ×2 (08:30→20:33)
[2018-06-21] MEDS: LOSARTAN 50 MG TABLET PO SCH (08:30)
[2018-06-21] MEDS: CYANOCOBALAMIN 500 MCG TABLET PO SCH (08:30)
[2018-06-21] MEDS: LINACLOTIDE 145 MCG CAPSULE PO SCH (08:31)
[2018-06-21] MEDS: FLUCONAZOLE 40 MG/ML 35 ML/BOTTLE PO SCH (08:31)
[2018-06-21] MEDS: FLUTICASONE 50 MCG NASAL SPRAY 16 GM BOTTLE BOTH NARES SCH (08:32)
[2018-06-21] MEDS: PANTOPRAZOLE 40 MG TABLET PO SCH (08:32)
[2018-06-21] MEDS: DICLOFENAC 1% GEL 100 GM TUBE TOP SCH (16:32)
[2018-06-21] MEDS: LIDOCAINE 5% PATCH TRANSDERM SCH (20:33)
[2018-06-21] MEDS: SODIUM CHLORIDE 0.9% 1,000 ML IV SCH (22:10)
[2018-06-21] MEDS: LEVOFLOXACIN INJ 750 MG in PREMIX 1 EACH IV SCH (22:11)
[2018-06-22] MEDS: LACTOBACILLUS RHAMNOSUS GG CAPSULE PO SCH ×2 (08:51→20:59)
[2018-06-22] MEDS: LOSARTAN 50 MG TABLET PO SCH (08:52)
[2018-06-22] MEDS: PANTOPRAZOLE 40 MG TABLET PO SCH (08:52)
[2018-06-22] MEDS: FLUCONAZOLE 40 MG/ML 35 ML/BOTTLE PO SCH (08:52)
[2018-06-22] MEDS: DICLOFENAC 1% GEL 100 GM TUBE TOP SCH ×3 (08:52→17:02)
[2018-06-22] MEDS: LINACLOTIDE 145 MCG CAPSULE PO SCH (08:52)
[2018-06-22] MEDS: FLUTICASONE 50 MCG NASAL SPRAY 16 GM BOTTLE BOTH NARES SCH (08:53)
[2018-06-22] MEDS: CYANOCOBALAMIN 500 MCG TABLET PO SCH (08:56)
[2018-06-22] MEDS: LIDOCAINE 5% PATCH TRANSDERM SCH (21:00)
[2018-06-22] MEDS: LEVOFLOXACIN INJ 750 MG in PREMIX 1 EACH IV SCH (21:01)
[2018-06-23 04:44] LABS: Basophils # 0.1 10*3/uL (0.0-0.2); Basophils % 0.6 % (0.0-0.8); Eosinophils % 0.4 % (0.00-10.9); Hematocrit 26.2 VOL% (35.7-47.0); Hemoglobin 8.8 GM/DL (12.0-16.0); Immature Granulocytes % 0.6 %; Immature Granulocytes Absolute 0.06 #; Lymphocytes # 0.4 10*3/uL (1.4-4.0); Lymphocytes % 3.4 % (21.3-54.2); Mean Corpuscular HGB Conc 33.6 GM/DL (32-36); Mean Corpuscular Hemoglobin 31 PG (27-34); Mean Corpuscular Volume 92.6 FL (87-102); Mean Platelet Volume 7.7 FL (9.6-12.0); Monocytes % 9.4 % (1.7-12.7); Neutrophils # 9.2 10*3/uL (1.4-7.4); Neutrophils % 85.6 % (38.7-73.9); Platelet Count 425 T/CUMM (130-400); Red Blood Count 2.83 MC/CUMM (3.8-5.5); Red Cell Distribution Width 18.5 % (9.3-17.3); White Blood Count 10.8 T/CUMM (4-12)
[2018-06-23 05:03] LABS: Calcium 8.5 MG/DL (8.5-10.1); Osmolality,Calculated 251.2 MOS/KG (273-304); Potassium 3.6 MMOL/L (3.5-5.1)
[2018-06-23 05:30] LABS: Eosinophils 1 % (0-10); Hypochromasia 1+; Lymphocytes 2 % (20-55); Segmented Neutrophils 88 % (50-85); Total Cells Counted 100
[2018-06-23 05:31] LABS: Acanthocytes Few; Microcytosis 1+; Ovalocytes Slight
[2018-06-23 08:10] VITALS: BP 136/81
[2018-06-23] MEDS: LACTOBACILLUS RHAMNOSUS GG CAPSULE PO SCH (09:04)
[2018-06-23] MEDS: PANTOPRAZOLE 40 MG TABLET PO SCH (09:04)
[2018-06-23] MEDS: LINACLOTIDE 145 MCG CAPSULE PO SCH (09:04)
[2018-06-23] MEDS: LOSARTAN 50 MG TABLET PO SCH (09:04)
[2018-06-23] MEDS: fentaNYL 50 MCG/HR PATCH TRANSDERM SCH (09:05)
[2018-06-23] MEDS: FLUCONAZOLE 40 MG/ML 35 ML/BOTTLE PO SCH (09:06)
[2018-06-23] MEDS: DICLOFENAC 1% GEL 100 GM TUBE TOP SCH (09:08)
[2018-06-23] MEDS: FLUTICASONE 50 MCG NASAL SPRAY 16 GM BOTTLE BOTH NARES SCH (09:08)
[2018-06-23] MEDS: CYANOCOBALAMIN 500 MCG TABLET PO SCH (09:09)
[2018-06-23] MEDS: SODIUM CHLORIDE 0.9% 1,000 ML IV SCH (09:09)
== END 2018-06-23 10:55 | disposition home or self-care (01) | DRG 194 ==
LOC: N.ED 17:55 → N.EDINP 20:29 → N.4E 21:19
PROVIDERS: ADMIT Internal Medicine; ATTEND Internal Medicine

== ENCOUNTER 2018-06-30 14:34 | Inpatient (IN) ==
[2018-06-30 15:12] LABS: Basophils # 0.1 10*3/uL (0.0-0.2); Basophils % 0.4 % (0.0-0.8); Eosinophils % 0.2 % (0.00-10.9); Hematocrit 32.4 VOL% (35.7-47.0); Hemoglobin 10.8 GM/DL (12.0-16.0); Immature Granulocytes % 0.5 %; Immature Granulocytes Absolute 0.08 #; Lymphocytes # 0.3 10*3/uL (1.4-4.0); Mean Corpuscular HGB Conc 33.3 GM/DL (32-36); Mean Corpuscular Hemoglobin 31 PG (27-34); Mean Corpuscular Volume 92.8 FL (87-102); Mean Platelet Volume 7.5 FL (9.6-12.0); Monocytes # 0.8 10*3/uL (0.11-0.8); Monocytes % 5.1 % (1.7-12.7); Neutrophils # 14.7 10*3/uL (1.4-7.4); Neutrophils % 91.8 % (38.7-73.9); Platelet Count 616 T/CUMM (130-400); Red Blood Count 3.49 MC/CUMM (3.8-5.5)
[2018-06-30 15:31] LABS: Albumin 3.4 G/DL (3.4-5.0); Bilirubin,Total 0.6 MG/DL (0.2-1.0); Calcium 9.5 MG/DL (8.5-10.1); Osmolality,Calculated 256.9 MOS/KG (273-304); Potassium 4.1 MMOL/L (3.5-5.1); Total Protein 7.4 G/DL (6.4-8.3)
[2018-06-30 15:46] LABS: Band Neutrophils 1 % (0-10); Lymphocytes 4 % (20-55); Platelet Estimate Normal; Segmented Neutrophils 92 % (50-85); Total Cells Counted 100
[2018-06-30] MEDS ORDERED: LEVALBUTEROL 1.25 MG/3 ML NEB RESP TX STA (16:33)
[2018-06-30] MEDS ORDERED: SODIUM CHLORIDE 0.9% 500 ML IV STA (16:33)
[2018-06-30] MEDS ORDERED: methylPREDNISolone SOD SUC 125 MG/2 ML VIAL IV STA (16:33)
[2018-06-30] MEDS ORDERED: ONDANSETRON 4 MG/2 ML VIAL IV STA (16:33)
[2018-06-30] MEDS ORDERED: MORPHINE 4 MG/1 ML VIAL IV PRN (19:18)
[2018-06-30] MEDS ORDERED: ONDANSETRON 4 MG/2 ML VIAL IV PRN (19:18)
[2018-06-30] MEDS ORDERED: LACTULOSE 20 GM/30 ML UDCUP PO PRN (19:18)
[2018-06-30] MEDS: ALBUTEROL/IPRATROPIUM 3 ML NEB RESP TX SCH ×2 (19:32→22:45)
[2018-06-30] MEDS: SODIUM CHLORIDE 0.9% 1,000 ML IV SCH (19:48)
[2018-06-30] MEDS: MEROPENEM 1,000 MG in SODIUM CHLORIDE 0.9% 100 ML IV SCH (20:41)
[2018-06-30] MEDS: ENOXAPARIN 30 MG/0.3 ML SYRINGE SUBCUT SCH (20:42)
[2018-06-30] MEDS: LIDOCAINE 5% PATCH TRANSDERM SCH (20:43)
[2018-06-30] MEDS: fentaNYL 50 MCG/HR PATCH TRANSDERM SCH (20:44)
[2018-07-01] MEDS: ALBUTEROL/IPRATROPIUM 3 ML NEB RESP TX SCH ×6 (02:40→23:59)
[2018-07-01] MEDS: SODIUM CHLORIDE 0.9% 1,000 ML IV SCH ×2 (04:35→14:44)
[2018-07-01 04:49] LABS: Basophils % 0.1 % (0.0-0.8); Eosinophils % 0.1 % (0.00-10.9); Hemoglobin 9.9 GM/DL (12.0-16.0); Immature Granulocytes % 0.5 %; Immature Granulocytes Absolute 0.05 #; Lymphocytes # 0.2 10*3/uL (1.4-4.0); Lymphocytes % 2.4 % (21.3-54.2); Mean Corpuscular Hemoglobin 31 PG (27-34); Mean Corpuscular Volume 93.2 FL (87-102); Mean Platelet Volume 7.7 FL (9.6-12.0); Monocytes # 0.2 10*3/uL (0.11-0.8); Monocytes % 1.6 % (1.7-12.7); Neutrophils # 9.7 10*3/uL (1.4-7.4); Neutrophils % 95.3 % (38.7-73.9); Red Blood Count 3.22 MC/CUMM (3.8-5.5); Red Cell Distribution Width 18.1 % (9.3-17.3)
[2018-07-01 04:51] LABS: Platelet Count 450 T/CUMM (130-400); White Blood Count 10.1 T/CUMM (4-12)
[2018-07-01 04:58] LABS: Hypochromasia 1+; Lymphocytes 3 % (20-55); Ovalocytes Slight; Platelet Estimate Adequate; Segmented Neutrophils 97 % (50-85); Total Cells Counted 100
[2018-07-01 05:06] LABS: Osmolality,Calculated 260.7 MOS/KG (273-304); Potassium 4.2 MMOL/L (3.5-5.1); Troponin I 0.026 NG/ML (0.00-0.045)
[2018-07-01] MEDS: PANTOPRAZOLE 40 MG TABLET PO SCH (08:51)
[2018-07-01] MEDS: MEROPENEM 1,000 MG in SODIUM CHLORIDE 0.9% 100 ML IV SCH ×2 (08:51→20:58)
[2018-07-01] MEDS: LINACLOTIDE 145 MCG CAPSULE PO SCH (08:52)
[2018-07-01] MEDS: DICLOFENAC 1% GEL 100 GM TUBE TOP SCH ×3 (08:52→16:54)
[2018-07-01] MEDS ORDERED: SODIUM CHLORIDE 0.9% IV ONE (09:19)
[2018-07-01] MEDS ORDERED: NIVOLUMAB IV ONE (09:19)
[2018-07-01] MEDS: FLUCONAZOLE 200 MG TABLET PO SCH (14:43)
[2018-07-01] MEDS: ENOXAPARIN 30 MG/0.3 ML SYRINGE SUBCUT SCH (20:59)
[2018-07-01] MEDS: LIDOCAINE 5% PATCH TRANSDERM SCH (21:02)
[2018-07-01 21:21] LABS: Apearance,Urine CLEAR (Clear); Bilirubin,Urine Negative (Negative); Blood, Urine Negative (Negative); Glucose,Urine (UA) Negative (Negative); Ketones,Urine 5 mg/dL (Negative); Mucus,Urine Occasional /LPF (Occasional); Nitrite,Urine Negative (Negative); Protein,Urine Negative; RBC,Urine <1 /HPF (0-4); Squamous Epithelial Cell,Urine Occasional /HPF (0-10); Urine Color Yellow (Yellow); Urine Specific Gravity 1.026 (1.001-1.035); Urine Urobilinogen < 2.0 EU/DL (0.2-1.0); WBC,Urine 2 /HPF (0-6)
[2018-07-02] MEDS: SODIUM CHLORIDE 0.9% 1,000 ML IV SCH (00:08)
[2018-07-02] MEDS: ALBUTEROL/IPRATROPIUM 3 ML NEB RESP TX SCH ×5 (03:30→19:17)
[2018-07-02] MEDS: LINACLOTIDE 145 MCG CAPSULE PO SCH (09:19)
[2018-07-02] MEDS: LOSARTAN 50 MG TABLET PO SCH (09:19)
[2018-07-02] MEDS: PANTOPRAZOLE 40 MG TABLET PO SCH (09:19)
[2018-07-02] MEDS: FLUCONAZOLE 200 MG TABLET PO SCH (09:19)
[2018-07-02] MEDS: MEROPENEM 1,000 MG in SODIUM CHLORIDE 0.9% 100 ML IV SCH ×2 (09:20→19:58)
[2018-07-02] MEDS: DICLOFENAC 1% GEL 100 GM TUBE TOP SCH ×3 (09:20→16:01)
[2018-07-02 10:38] LABS: Lymphocytes,Pleural Fluid 84 %; Monocytes,Pleural Fluid 3 %; Neutrophils,Pleural Fluid 13 %
[2018-07-02 10:41] LABS: RBC,Pleural Fluid 41765 T/CUMM
[2018-07-02] MEDS: methylPREDNISolone SOD SUC 125 MG/2 ML VIAL IV SCH ×2 (11:56→22:12)
[2018-07-02] MEDS: ENOXAPARIN 30 MG/0.3 ML SYRINGE SUBCUT SCH (20:03)
[2018-07-02] MEDS: LIDOCAINE 5% PATCH TRANSDERM SCH (20:04)
[2018-07-03] MEDS: ALBUTEROL/IPRATROPIUM 3 ML NEB RESP TX SCH ×6 (00:30→19:01)
[2018-07-03 05:34] LABS: Immature Granulocytes % 0.4 %; Immature Granulocytes Absolute 0.04 #; Lymphocytes # 0.2 10*3/uL (1.4-4.0); Mean Corpuscular HGB Conc 33.3 GM/DL (32-36); Mean Corpuscular Hemoglobin 31 PG (27-34); Mean Corpuscular Volume 92.3 FL (87-102); Mean Platelet Volume 7.6 FL (9.6-12.0); Monocytes # 0.2 10*3/uL (0.11-0.8); Monocytes % 2.6 % (1.7-12.7); Neutrophils # 8.9 10*3/uL (1.4-7.4); Platelet Count 447 T/CUMM (130-400); Red Blood Count 3.25 MC/CUMM (3.8-5.5); Red Cell Distribution Width 17.2 % (9.3-17.3); White Blood Count 9.3 T/CUMM (4-12)
[2018-07-03 05:40] LABS: Calcium 8.7 MG/DL (8.5-10.1); Osmolality,Calculated 264.4 MOS/KG (273-304); Potassium 3.2 MMOL/L (3.5-5.1)
[2018-07-03 06:06] LABS: Hypochromasia 1+; Lymphocytes 2 % (20-55); Platelet Estimate Adequate; Segmented Neutrophils 97 % (50-85); Total Cells Counted 100
[2018-07-03] MEDS ORDERED: GLYCOPYRROLATE 0.4 MG/2 ML VIAL IM ONE (07:30)
[2018-07-03] MEDS ORDERED: PROMETHAZINE 25 MG/1 ML VIAL IM ONE (07:30)
[2018-07-03] MEDS ORDERED: MEPERIDINE 50 MG/1 ML VIAL IM ONE (07:30)
[2018-07-03] MEDS ORDERED: LIDOCAINE 1% 20 ML VIAL MISC INJ ONE (08:00)
[2018-07-03] MEDS ORDERED: LIDOCAINE 2% 20 ML VIAL RESP TX ONE (08:00)
[2018-07-03] MEDS ORDERED: MIDAZOLAM 2 MG/2 ML VIAL IV ONE (08:00)
[2018-07-03] MEDS ORDERED: LIDOCAINE 2% VISCOUS 100 ML BOTTLE SWISH/SPIT ONE (08:00)
[2018-07-03] MEDS ORDERED: MIDAZOLAM 2 MG/2 ML VIAL ONE (08:16)
[2018-07-03] MEDS ORDERED: POTASSIUM CHLORIDE 20 MEQ TABLET PO ONE (08:16)
[2018-07-03] MEDS: methylPREDNISolone SOD SUC 125 MG/2 ML VIAL IV SCH ×2 (10:59→21:01)
[2018-07-03] MEDS: FLUCONAZOLE 200 MG TABLET PO SCH (11:02)
[2018-07-03] MEDS: fentaNYL 50 MCG/HR PATCH TRANSDERM SCH (11:02)
[2018-07-03] MEDS: MEROPENEM 1,000 MG in SODIUM CHLORIDE 0.9% 100 ML IV SCH ×2 (11:02→21:00)
[2018-07-03] MEDS: LOSARTAN 50 MG TABLET PO SCH (11:03)
[2018-07-03] MEDS: PANTOPRAZOLE 40 MG TABLET PO SCH (11:04)
[2018-07-03] MEDS: LINACLOTIDE 145 MCG CAPSULE PO SCH (11:04)
[2018-07-03] MEDS ORDERED: POTASSIUM CHLORIDE 8 MEQ CAPSULE PO SCH (15:30)
[2018-07-03] MEDS ORDERED: SODIUM CHLORIDE 0.9% 500 ML IV ONE (15:39)
[2018-07-03] MEDS: DICLOFENAC 1% GEL 100 GM TUBE TOP SCH (16:02)
[2018-07-03] MEDS: DILTIAZEM 60 MG TABLET PO SCH ×2 (17:19→20:25)
[2018-07-03] MEDS: ENOXAPARIN 30 MG/0.3 ML SYRINGE SUBCUT SCH (20:28)
[2018-07-03] MEDS: LIDOCAINE 5% PATCH TRANSDERM SCH (21:01)
[2018-07-04] MEDS: ALBUTEROL/IPRATROPIUM 3 ML NEB RESP TX SCH ×7 (00:09→23:44)
[2018-07-04 04:51] LABS: Basophils % 0.1 % (0.0-0.8); Hematocrit 27.6 VOL% (35.7-47.0); Hemoglobin 9.4 GM/DL (12.0-16.0); Immature Granulocytes % 0.6 %; Immature Granulocytes Absolute 0.07 #; Lymphocytes # 0.2 10*3/uL (1.4-4.0); Lymphocytes % 1.5 % (21.3-54.2); Mean Corpuscular HGB Conc 34.1 GM/DL (32-36); Mean Corpuscular Hemoglobin 31 PG (27-34); Monocytes # 0.6 10*3/uL (0.11-0.8); Monocytes % 4.4 % (1.7-12.7); Neutrophils # 11.8 10*3/uL (1.4-7.4); Neutrophils % 93.4 % (38.7-73.9); Platelet Count 442 T/CUMM (130-400); Red Cell Distribution Width 17.7 % (9.3-17.3); White Blood Count 12.7 T/CUMM (4-12)
[2018-07-04 05:01] LABS: Calcium 8.9 MG/DL (8.5-10.1); Potassium 3.2 MMOL/L (3.5-5.1)
[2018-07-04 05:42] LABS: Lymphocytes 3 % (20-55); Segmented Neutrophils 96 % (50-85); Total Cells Counted 100
[2018-07-04 05:43] LABS: Platelet Estimate Normal; Polychromasia Few
[2018-07-04] MEDS: methylPREDNISolone SOD SUC 125 MG/2 ML VIAL IV SCH ×2 (09:31→21:05)
[2018-07-04] MEDS: LINACLOTIDE 145 MCG CAPSULE PO SCH (09:31)
[2018-07-04] MEDS: MEROPENEM 1,000 MG in SODIUM CHLORIDE 0.9% 100 ML IV SCH ×2 (09:40→20:28)
[2018-07-04] MEDS: POTASSIUM CHLORIDE 20 MEQ TABLET PO SCH (09:41)
[2018-07-04] MEDS: DILTIAZEM 60 MG TABLET PO SCH ×3 (09:41→20:34)
[2018-07-04] MEDS: LOSARTAN 50 MG TABLET PO SCH (09:41)
[2018-07-04] MEDS: DICLOFENAC 1% GEL 100 GM TUBE TOP SCH ×3 (09:42→16:39)
[2018-07-04] MEDS: PANTOPRAZOLE 40 MG TABLET PO SCH (09:42)
[2018-07-04] MEDS: FLUCONAZOLE 200 MG TABLET PO SCH (09:42)
[2018-07-04] MEDS: POTASSIUM CHLORIDE 20 MEQ/15 ML UDCUP PO SCH ×2 (16:38→19:03)
[2018-07-04] MEDS: ASCORBIC ACID 500 MG TABLET PO SCH (20:34)
[2018-07-04] MEDS: LIDOCAINE 5% PATCH TRANSDERM SCH (20:34)
[2018-07-04] MEDS: ENOXAPARIN 30 MG/0.3 ML SYRINGE SUBCUT SCH (20:35)
[2018-07-05] MEDS: ALBUTEROL/IPRATROPIUM 3 ML NEB RESP TX SCH ×6 (03:10→23:00)
[2018-07-05 05:45] LABS: Osmolality,Calculated 280.5 MOS/KG (273-304); Potassium 4.2 MMOL/L (3.5-5.1)
[2018-07-05] MEDS: POTASSIUM CHLORIDE 20 MEQ TABLET PO SCH (07:42)
[2018-07-05] MEDS: PANTOPRAZOLE 40 MG TABLET PO SCH (08:41)
[2018-07-05] MEDS: DILTIAZEM CD 120 MG CAPSULE PO SCH (08:41)
[2018-07-05] MEDS: MAGNESIUM CHLORIDE 64 MG TABLET PO SCH (08:42)
[2018-07-05] MEDS: LOSARTAN 25 MG TABLET PO SCH (08:42)
[2018-07-05] MEDS: FLUCONAZOLE 200 MG TABLET PO SCH (08:42)
[2018-07-05] MEDS: ASCORBIC ACID 500 MG TABLET PO SCH ×2 (08:42→21:11)
[2018-07-05] MEDS: LINACLOTIDE 145 MCG CAPSULE PO SCH (08:42)
[2018-07-05] MEDS: DICLOFENAC 1% GEL 100 GM TUBE TOP SCH ×3 (08:45→15:46)
[2018-07-05] MEDS: MEROPENEM 1,000 MG in SODIUM CHLORIDE 0.9% 100 ML IV SCH ×2 (08:59→21:15)
[2018-07-05] MEDS ORDERED: POTASSIUM CHLORIDE 20 MEQ TABLET PO SCH (09:00)
[2018-07-05] MEDS: POTASSIUM CHLORIDE 20 MEQ/15 ML UDCUP PO SCH (10:03)
[2018-07-05] MEDS: methylPREDNISolone SOD SUC 125 MG/2 ML VIAL IV SCH ×2 (10:04→21:15)
[2018-07-05] MEDS: ENOXAPARIN 30 MG/0.3 ML SYRINGE SUBCUT SCH (21:14)
[2018-07-05] MEDS: LIDOCAINE 5% PATCH TRANSDERM SCH (21:14)
[2018-07-06] MEDS: ALBUTEROL/IPRATROPIUM 3 ML NEB RESP TX SCH ×6 (03:20→23:41)
[2018-07-06] MEDS: methylPREDNISolone SOD SUC 125 MG/2 ML VIAL IV SCH ×2 (09:12→22:52)
[2018-07-06] MEDS: POTASSIUM CHLORIDE 20 MEQ/15 ML UDCUP PO SCH (09:18)
[2018-07-06] MEDS: fentaNYL 50 MCG/HR PATCH TRANSDERM SCH (09:25)
[2018-07-06] MEDS: FLUCONAZOLE 200 MG TABLET PO SCH (09:26)
[2018-07-06] MEDS: ASCORBIC ACID 500 MG TABLET PO SCH ×2 (09:26→20:54)
[2018-07-06] MEDS: LOSARTAN 25 MG TABLET PO SCH (09:27)
[2018-07-06] MEDS: PANTOPRAZOLE 40 MG TABLET PO SCH (09:27)
[2018-07-06] MEDS: DILTIAZEM CD 120 MG CAPSULE PO SCH (09:27)
[2018-07-06] MEDS: MAGNESIUM CHLORIDE 64 MG TABLET PO SCH (09:27)
[2018-07-06] MEDS: LINACLOTIDE 145 MCG CAPSULE PO SCH (09:28)
[2018-07-06] MEDS: DICLOFENAC 1% GEL 100 GM TUBE TOP SCH ×3 (09:28→17:12)
[2018-07-06] MEDS: MEROPENEM 1,000 MG in SODIUM CHLORIDE 0.9% 100 ML IV SCH ×2 (16:31→20:54)
[2018-07-06] MEDS: ENOXAPARIN 30 MG/0.3 ML SYRINGE SUBCUT SCH (20:53)
[2018-07-06] MEDS: LIDOCAINE 5% PATCH TRANSDERM SCH (20:54)
[2018-07-07] MEDS: ALBUTEROL/IPRATROPIUM 3 ML NEB RESP TX SCH ×6 (03:20→23:56)
[2018-07-07 04:41] LABS: Basophils % 0.1 % (0.0-0.8); Hematocrit 27.7 VOL% (35.7-47.0); Hemoglobin 8.9 GM/DL (12.0-16.0); Immature Granulocytes % 0.7 %; Immature Granulocytes Absolute 0.13 #; Lymphocytes # 0.1 10*3/uL (1.4-4.0); Lymphocytes % 0.7 % (21.3-54.2); Mean Corpuscular HGB Conc 32.1 GM/DL (32-36); Mean Corpuscular Hemoglobin 31 PG (27-34); Mean Corpuscular Volume 95.8 FL (87-102); Mean Platelet Volume 8.1 FL (9.6-12.0); Monocytes # 0.3 10*3/uL (0.11-0.8); Monocytes % 1.5 % (1.7-12.7); Neutrophils # 18.6 10*3/uL (1.4-7.4); Platelet Count 390 T/CUMM (130-400); Red Blood Count 2.89 MC/CUMM (3.8-5.5); Red Cell Distribution Width 18.1 % (9.3-17.3); White Blood Count 19.2 T/CUMM (4-12)
[2018-07-07 05:07] LABS: Albumin 2.7 G/DL (3.4-5.0); Bilirubin,Total 0.7 MG/DL (0.2-1.0); Total Protein 5.8 G/DL (6.4-8.3)
[2018-07-07 05:41] LABS: Platelet Estimate Normal; Polychromasia Few; Segmented Neutrophils 99 % (50-85); Total Cells Counted 100
[2018-07-07] MEDS: methylPREDNISolone SOD SUC 125 MG/2 ML VIAL IV SCH ×2 (09:55→22:27)
[2018-07-07] MEDS: LINACLOTIDE 145 MCG CAPSULE PO SCH (09:55)
[2018-07-07] MEDS: DILTIAZEM CD 120 MG CAPSULE PO SCH ×2 (09:57→21:26)
[2018-07-07] MEDS: FLUCONAZOLE 200 MG TABLET PO SCH (09:57)
[2018-07-07] MEDS ORDERED: METOPROLOL TARTRATE 5 MG/5 ML VIAL IV PRN (09:59)
[2018-07-07] MEDS ORDERED: SODIUM CHLORIDE 0.9% IV ONE (10:00)
[2018-07-07] MEDS: LOSARTAN 25 MG TABLET PO SCH (10:00)
[2018-07-07] MEDS ORDERED: NIVOLUMAB IV ONE (10:00)
[2018-07-07] MEDS: ASCORBIC ACID 500 MG TABLET PO SCH ×2 (10:00→21:26)
[2018-07-07] MEDS: POTASSIUM CHLORIDE 20 MEQ/15 ML UDCUP PO SCH (10:00)
[2018-07-07] MEDS: PANTOPRAZOLE 40 MG TABLET PO SCH (10:00)
[2018-07-07] MEDS: MAGNESIUM CHLORIDE 64 MG TABLET PO SCH (10:02)
[2018-07-07] MEDS: DICLOFENAC 1% GEL 100 GM TUBE TOP SCH ×3 (10:10→17:47)
[2018-07-07] MEDS: MEROPENEM 1,000 MG in SODIUM CHLORIDE 0.9% 100 ML IV SCH ×2 (10:14→19:53)
[2018-07-07] MEDS: guaiFENesin/DM ER 600-30 MG TABLET PO SCH ×2 (17:46→21:25)
[2018-07-07] MEDS: ENOXAPARIN 30 MG/0.3 ML SYRINGE SUBCUT SCH (21:24)
[2018-07-07] MEDS: LIDOCAINE 5% PATCH TRANSDERM SCH (21:25)
[2018-07-08] MEDS: ALBUTEROL/IPRATROPIUM 3 ML NEB RESP TX SCH ×6 (03:01→23:00)
[2018-07-08] MEDS: methylPREDNISolone SOD SUC 125 MG/2 ML VIAL IV SCH (09:42)
[2018-07-08] MEDS: POTASSIUM CHLORIDE 20 MEQ/15 ML UDCUP PO SCH (09:42)
[2018-07-08] MEDS: DILTIAZEM CD 120 MG CAPSULE PO SCH ×2 (09:43→21:07)
[2018-07-08] MEDS: MAGNESIUM CHLORIDE 64 MG TABLET PO SCH (09:43)
[2018-07-08] MEDS: guaiFENesin/DM ER 600-30 MG TABLET PO SCH ×2 (09:43→21:07)
[2018-07-08] MEDS: PANTOPRAZOLE 40 MG TABLET PO SCH (09:43)
[2018-07-08] MEDS: LINACLOTIDE 145 MCG CAPSULE PO SCH (09:43)
[2018-07-08] MEDS: ASCORBIC ACID 500 MG TABLET PO SCH ×2 (09:44→21:07)
[2018-07-08] MEDS: LOSARTAN 25 MG TABLET PO SCH (09:44)
[2018-07-08] MEDS: FLUCONAZOLE 200 MG TABLET PO SCH (09:45)
[2018-07-08] MEDS: DICLOFENAC 1% GEL 100 GM TUBE TOP SCH ×3 (10:01→17:43)
[2018-07-08] MEDS: SODIUM CHLORIDE 0.9% 1,000 ML IV SCH (10:14)
[2018-07-08] MEDS: methylPREDNISolone SOD SUC 40 MG/1 ML VIAL IV SCH ×2 (10:18→22:31)
[2018-07-08] MEDS ORDERED: SODIUM CHLORIDE 0.9% IV ONE (10:30)
[2018-07-08] MEDS ORDERED: NIVOLUMAB IV ONE (10:30)
[2018-07-08] MEDS: LIDOCAINE 5% PATCH TRANSDERM SCH (21:08)
[2018-07-08] MEDS: ENOXAPARIN 30 MG/0.3 ML SYRINGE SUBCUT SCH (21:09)
[2018-07-09] MEDS: SODIUM CHLORIDE 0.9% 1,000 ML IV SCH ×2 (02:43→13:14)
[2018-07-09] MEDS: ALBUTEROL/IPRATROPIUM 3 ML NEB RESP TX SCH ×6 (03:30→23:58)
[2018-07-09 05:24] LABS: Basophils % 0.1 % (0.0-0.8); Hematocrit 29.1 VOL% (35.7-47.0); Hemoglobin 9.5 GM/DL (12.0-16.0); Immature Granulocytes % 0.5 %; Immature Granulocytes Absolute 0.09 #; Lymphocytes # 0.2 10*3/uL (1.4-4.0); Lymphocytes % 0.8 % (21.3-54.2); Mean Corpuscular HGB Conc 32.6 GM/DL (32-36); Mean Corpuscular Hemoglobin 31 PG (27-34); Mean Corpuscular Volume 94.8 FL (87-102); Mean Platelet Volume 8.5 FL (9.6-12.0); Monocytes # 0.7 10*3/uL (0.11-0.8); Monocytes % 3.5 % (1.7-12.7); Neutrophils % 95.1 % (38.7-73.9); Platelet Count 446 T/CUMM (130-400); Red Blood Count 3.07 MC/CUMM (3.8-5.5); Red Cell Distribution Width 17.8 % (9.3-17.3)
[2018-07-09 05:38] LABS: Calcium 8.6 MG/DL (8.5-10.1); Osmolality,Calculated 276.7 MOS/KG (273-304); Potassium 3.4 MMOL/L (3.5-5.1)
[2018-07-09 05:49] LABS: Lymphocytes 4 % (20-55); Segmented Neutrophils 91 % (50-85); Total Cells Counted 100
[2018-07-09 05:56] LABS: Platelet Estimate Increased
[2018-07-09 05:57] LABS: Hypochromasia 1+
[2018-07-09] MEDS ORDERED: SODIUM PHOSPHATE ENEMA 133 ML BOTTLE RECTAL ONE (09:12)
[2018-07-09] MEDS: fentaNYL 50 MCG/HR PATCH TRANSDERM SCH (09:18)
[2018-07-09] MEDS: methylPREDNISolone SOD SUC 40 MG/1 ML VIAL IV SCH (09:18)
[2018-07-09] MEDS: POTASSIUM CHLORIDE 20 MEQ/15 ML UDCUP PO SCH (09:18)
[2018-07-09] MEDS: DILTIAZEM CD 120 MG CAPSULE PO SCH ×2 (09:19→20:37)
[2018-07-09] MEDS: guaiFENesin/DM ER 600-30 MG TABLET PO SCH ×2 (09:19→20:37)
[2018-07-09] MEDS: MAGNESIUM CHLORIDE 64 MG TABLET PO SCH (09:19)
[2018-07-09] MEDS: ASCORBIC ACID 500 MG TABLET PO SCH ×2 (09:19→20:36)
[2018-07-09] MEDS: LINACLOTIDE 145 MCG CAPSULE PO SCH (09:19)
[2018-07-09] MEDS: LOSARTAN 25 MG TABLET PO SCH (09:19)
[2018-07-09] MEDS: DICLOFENAC 1% GEL 100 GM TUBE TOP SCH ×3 (09:20→17:07)
[2018-07-09] MEDS: PANTOPRAZOLE 40 MG TABLET PO SCH (09:20)
[2018-07-09] MEDS ORDERED: POTASSIUM CHLORIDE 20 MEQ TABLET PO ONE (12:23)
[2018-07-09] MEDS: ENOXAPARIN 30 MG/0.3 ML SYRINGE SUBCUT SCH (20:31)
[2018-07-09] MEDS: LIDOCAINE 5% PATCH TRANSDERM SCH (20:31)
[2018-07-10] MEDS: ALBUTEROL/IPRATROPIUM 3 ML NEB RESP TX SCH ×3 (03:34→10:59)
[2018-07-10] MEDS: LINACLOTIDE 145 MCG CAPSULE PO SCH (07:29)
[2018-07-10] MEDS: DICLOFENAC 1% GEL 100 GM TUBE TOP SCH (07:29)
[2018-07-10] MEDS ORDERED: methylPREDNISolone SOD SUC 40 MG/1 ML VIAL IV SCH (09:00)
[2018-07-10] MEDS: ASCORBIC ACID 500 MG TABLET PO SCH (10:03)
[2018-07-10] MEDS: LOSARTAN 25 MG TABLET PO SCH (10:03)
[2018-07-10] MEDS: MAGNESIUM CHLORIDE 64 MG TABLET PO SCH (10:03)
[2018-07-10] MEDS: guaiFENesin/DM ER 600-30 MG TABLET PO SCH (10:03)
[2018-07-10] MEDS: PANTOPRAZOLE 40 MG TABLET PO SCH (10:04)
[2018-07-10] MEDS: POTASSIUM CHLORIDE 20 MEQ/15 ML UDCUP PO SCH (10:04)
[2018-07-10] MEDS: DILTIAZEM CD 120 MG CAPSULE PO SCH (10:04)
[2018-07-10 12:29] VITALS: BP 116/75
== END 2018-07-10 12:22 | disposition home or self-care (01) | DRG 180 ==
LOC: N.ED 14:34 → SUATTDRO 17:02 → N.EDINP 17:02 → N.4E 18:56
PROVIDERS: ADMIT Internal Medicine; ATTEND Hospitalist

== ENCOUNTER 2018-07-16 08:00 | Inpatient (IN) ==
[2018-07-16 09:04] LABS: Basophils # 0.1 10*3/uL (0.0-0.2); Basophils % 0.2 % (0.0-0.8); Hematocrit 30.1 VOL% (35.7-47.0); Hemoglobin 9.9 GM/DL (12.0-16.0); Immature Granulocytes % 0.7 %; Immature Granulocytes Absolute 0.18 #; Lymphocytes # 0.2 10*3/uL (1.4-4.0); Lymphocytes % 0.8 % (21.3-54.2); Mean Corpuscular HGB Conc 32.9 GM/DL (32-36); Mean Corpuscular Hemoglobin 31 PG (27-34); Mean Corpuscular Volume 93.8 FL (87-102); Mean Platelet Volume 8.2 FL (9.6-12.0); Monocytes # 0.9 10*3/uL (0.11-0.8); Monocytes % 3.7 % (1.7-12.7); Neutrophils # 23.7 10*3/uL (1.4-7.4); Neutrophils % 94.6 % (38.7-73.9); Platelet Count 331 T/CUMM (130-400); Red Blood Count 3.21 MC/CUMM (3.8-5.5); Red Cell Distribution Width 16.6 % (9.3-17.3); White Blood Count 25.1 T/CUMM (4-12)
[2018-07-16 09:26] LABS: Band Neutrophils 6 % (0-10); Lymphocytes 2 % (20-55); Segmented Neutrophils 90 % (50-85); Total Cells Counted 100
[2018-07-16 09:27] LABS: Anisocytosis 1+; Macrocytosis 1+; Platelet Estimate Normal; Poikilocytosis 1+
[2018-07-16 09:28] LABS: Albumin 2.7 G/DL (3.4-5.0); Bilirubin,Total 0.6 MG/DL (0.2-1.0); Calcium 8.3 MG/DL (8.5-10.1); Osmolality,Calculated 258.9 MOS/KG (273-304); Potassium 3.7 MMOL/L (3.5-5.1); Total Protein 6.4 G/DL (6.4-8.3)
[2018-07-16] MEDS ORDERED: SODIUM CHLORIDE 0.9% 1,000 ML IV STA (09:59)
[2018-07-16] MEDS ORDERED: ACETAMINOPHEN 325 MG TABLET PO PRN (10:02)
[2018-07-16] MEDS ORDERED: ONDANSETRON 4 MG/2 ML VIAL IV PRN (10:02)
[2018-07-16] MEDS ORDERED: SODIUM CHLORIDE 0.9% 500 ML IV STA (10:08)
[2018-07-16] MEDS ORDERED: LACTULOSE 20 GM/30 ML UDCUP PO PRN (11:14)
[2018-07-16] MEDS: SODIUM CHLORIDE 0.9% 1,000 ML IV SCH ×2 (12:48→22:02)
[2018-07-16] MEDS: PIPERACILLIN/TAZOBACTAM 3,375 MG in SODIUM CHLORIDE 0.9% 100 ML IV SCH ×2 (12:49→21:39)
[2018-07-16] MEDS: DICLOFENAC 1% GEL 100 GM TUBE TOP SCH (16:45)
[2018-07-16] MEDS: LEVOFLOXACIN INJ 750 MG in PREMIX 1 EACH IV SCH (16:45)
[2018-07-16] MEDS: LIDOCAINE 5% PATCH TRANSDERM SCH (16:46)
[2018-07-16] MEDS: VANCOMYCIN INJ 750 MG in SODIUM CHLORIDE 0.9% 250 ML IV SCH (18:44)
[2018-07-16] MEDS: ASCORBIC ACID 500 MG TABLET PO SCH (21:40)
[2018-07-16] MEDS: DILTIAZEM CD 120 MG CAPSULE PO SCH ×2 (21:40→21:52)
[2018-07-16] MEDS: ENOXAPARIN 40 MG/0.4 ML SYRINGE SUBCUT SCH (21:41)
[2018-07-17] MEDS: PIPERACILLIN/TAZOBACTAM 3,375 MG in SODIUM CHLORIDE 0.9% 100 ML IV SCH ×3 (05:06→21:00)
[2018-07-17 05:25] LABS: Basophils % 0.2 % (0.0-0.8); Eosinophils % 0.1 % (0.00-10.9); Hematocrit 24.6 VOL% (35.7-47.0); Hemoglobin 8.1 GM/DL (12.0-16.0); Immature Granulocytes % 0.8 %; Immature Granulocytes Absolute 0.14 #; Lymphocytes # 0.3 10*3/uL (1.4-4.0); Lymphocytes % 1.7 % (21.3-54.2); Mean Corpuscular HGB Conc 32.9 GM/DL (32-36); Mean Corpuscular Hemoglobin 32 PG (27-34); Mean Corpuscular Volume 95.7 FL (87-102); Mean Platelet Volume 8.4 FL (9.6-12.0); Monocytes # 1.4 10*3/uL (0.11-0.8); Monocytes % 7.7 % (1.7-12.7); Neutrophils # 16.4 10*3/uL (1.4-7.4); Neutrophils % 89.5 % (38.7-73.9); Platelet Count 298 T/CUMM (130-400); Red Blood Count 2.57 MC/CUMM (3.8-5.5); Red Cell Distribution Width 17.1 % (9.3-17.3); White Blood Count 18.3 T/CUMM (4-12)
[2018-07-17 05:36] LABS: Bilirubin,Total 0.7 MG/DL (0.2-1.0); Calcium 8.1 MG/DL (8.5-10.1); Osmolality,Calculated 265.1 MOS/KG (273-304); Potassium 3.3 MMOL/L (3.5-5.1); Total Protein 5.2 G/DL (6.4-8.3)
[2018-07-17 06:33] LABS: Lymphocytes 4 % (20-55); Segmented Neutrophils 92 % (50-85); Total Cells Counted 100
[2018-07-17 06:34] LABS: Anisocytosis Slight; Microcytosis Slight
[2018-07-17 06:36] LABS: Acanthocytes Few; Platelet Estimate Normal; Schistocytes Slight
[2018-07-17] MEDS ORDERED: POTASSIUM CHLORIDE 20 MEQ TABLET PO ONE (10:02)
[2018-07-17] MEDS: POTASSIUM CHLORIDE 20 MEQ/15 ML UDCUP PO SCH (10:24)
[2018-07-17] MEDS: LINACLOTIDE 145 MCG CAPSULE PO SCH (10:25)
[2018-07-17] MEDS: LOSARTAN 25 MG TABLET PO SCH (10:26)
[2018-07-17] MEDS: DILTIAZEM CD 120 MG CAPSULE PO SCH ×2 (10:27→20:32)
[2018-07-17] MEDS: amLODIPine 5 MG TABLET PO SCH (10:27)
[2018-07-17] MEDS: ASCORBIC ACID 500 MG TABLET PO SCH ×2 (10:27→20:33)
[2018-07-17] MEDS: MAGNESIUM CHLORIDE 64 MG TABLET PO SCH (10:27)
[2018-07-17] MEDS: VANCOMYCIN INJ 750 MG in SODIUM CHLORIDE 0.9% 250 ML IV SCH ×2 (10:31→20:47)
[2018-07-17] MEDS: DICLOFENAC 1% GEL 100 GM TUBE TOP SCH ×3 (10:37→15:58)
[2018-07-17] MEDS: SODIUM CHLORIDE 0.9% 1,000 ML IV SCH ×2 (13:03→23:00)
[2018-07-17] MEDS ORDERED: SODIUM CHLORIDE 0.9% 1,000 ML IV PRN (14:25)
[2018-07-17] MEDS: LEVALBUTEROL 1.25 MG/3 ML NEB RESP TX SCH (15:10)
[2018-07-17] MEDS: LEVOFLOXACIN INJ 750 MG in PREMIX 1 EACH IV SCH (18:10)
[2018-07-17] MEDS: ENOXAPARIN 40 MG/0.4 ML SYRINGE SUBCUT SCH (20:31)
[2018-07-17] MEDS: LIDOCAINE 5% PATCH TRANSDERM SCH (21:05)
[2018-07-18] MEDS: LEVALBUTEROL 1.25 MG/3 ML NEB RESP TX SCH ×2 (00:12→07:09)
[2018-07-18] MEDS: PIPERACILLIN/TAZOBACTAM 3,375 MG in SODIUM CHLORIDE 0.9% 100 ML IV SCH ×2 (03:43→13:06)
[2018-07-18 05:02] LABS: Calcium 7.9 MG/DL (8.5-10.1); Osmolality,Calculated 275.4 MOS/KG (273-304)
[2018-07-18] MEDS: POTASSIUM CHLORIDE 20 MEQ TABLET PO SCH ×2 (06:55→09:32)
[2018-07-18 06:59] LABS: Basophils % 0.2 % (0.0-0.8); Eosinophils % 0.2 % (0.00-10.9); Hematocrit 26.7 VOL% (35.7-47.0); Hemoglobin 8.8 GM/DL (12.0-16.0); Immature Granulocytes % 0.6 %; Lymphocytes # 0.3 10*3/uL (1.4-4.0); Lymphocytes % 1.6 % (21.3-54.2); Mean Corpuscular Hemoglobin 31 PG (27-34); Mean Platelet Volume 8.9 FL (9.6-12.0); Monocytes # 1.2 10*3/uL (0.11-0.8); Neutrophils # 15.6 10*3/uL (1.4-7.4); Neutrophils % 90.4 % (38.7-73.9); Platelet Count 296 T/CUMM (130-400); Red Blood Count 2.84 MC/CUMM (3.8-5.5); Red Cell Distribution Width 17.2 % (9.3-17.3); White Blood Count 17.2 T/CUMM (4-12)
[2018-07-18 07:24] LABS: Anisocytosis 2+; Band Neutrophils 5 % (0-10); Lymphocytes 1 % (20-55); Macrocytosis 1+; Platelet Estimate Normal; Poikilocytosis Slight; Segmented Neutrophils 83 % (50-85); Total Cells Counted 100
[2018-07-18 07:25] LABS: Spherocytes Few
[2018-07-18] MEDS: LINACLOTIDE 145 MCG CAPSULE PO SCH (08:03)
[2018-07-18] MEDS: SODIUM CHLORIDE 0.9% 1,000 ML IV SCH (08:04)
[2018-07-18] MEDS ORDERED: fentaNYL 50 MCG/HR PATCH TRANSDERM SCH (09:00)
[2018-07-18] MEDS: DILTIAZEM CD 120 MG CAPSULE PO SCH (09:32)
[2018-07-18] MEDS: ASCORBIC ACID 500 MG TABLET PO SCH (09:32)
[2018-07-18] MEDS: LOSARTAN 25 MG TABLET PO SCH (09:32)
[2018-07-18] MEDS: amLODIPine 5 MG TABLET PO SCH (09:32)
[2018-07-18] MEDS: MAGNESIUM CHLORIDE 64 MG TABLET PO SCH (09:32)
[2018-07-18] MEDS: VANCOMYCIN INJ 750 MG in SODIUM CHLORIDE 0.9% 250 ML IV SCH (09:33)
[2018-07-18] MEDS: POTASSIUM CHLORIDE 20 MEQ/15 ML UDCUP PO SCH (09:33)
[2018-07-18] MEDS: DICLOFENAC 1% GEL 100 GM TUBE TOP SCH ×2 (10:03→12:25)
[2018-07-18 11:57] VITALS: BP 107/76
== END 2018-07-18 13:25 | disposition home health service (06) | DRG 194 ==
LOC: EDUNIT# → EDBD → N.ED 08:00 → SUATTDRO 10:02 → N.EDINP 10:02 → N.4E 11:20
PROVIDERS: ADMIT Internal Medicine; ATTEND Internal Medicine Cardiovascular Disease